=== PATIENT | male | born 1955 | race Caucasian/White ===

== ENCOUNTER 2019-04-26 08:12 | Day surgery (SDC) | payer OTHER ==
[2019-04-26 09:25] VITALS: BMI 19.5
[2019-04-26 11:39] VITALS: TEMP 97.5
--- NOTE | 2019-04-26 11:50 | OP ---
Operative Note - Note: Operative Date: 04/26/19 Pre-Operative Diagnosis: Left renal stone Operation: Left ESWL Findings: 5 mm mid pole left renal stone Post-Operative Diagnosis: Same as Pre-op Surgeon: Bobby Goff Anesthesia: Fractional Estimated Blood Loss (mls): 0 Operative Report Dictated: Yes
[2019-04-26] MEDS ORDERED: ACETAMINOPHEN 325 MG TABLET (FP) ONE (12:35)
[2019-04-26 12:51] VITALS: BP 123/86; PULSE 58
--- NOTE | 2019-04-27 08:16 | OP ---
DATE OF OPERATION: 04/26/2019 PREOPERATIVE DIAGNOSIS: Left renal stone. POSTOPERATIVE DIAGNOSIS: Left renal stone. PROCEDURE PERFORMED: Left extracorporeal shock wave lithotripsy. SURGEON: Alfredo Watson MD ANESTHESIA: Fractional. DESCRIPTION OF PROCEDURE: The patient was brought to the operating room and placed in the supine position on the operating room table. Ultrasonography and fluoroscopy were performed. A 5-mm left mid pole stone was identified. Anesthesia and preoperative antibiotics were then administered. Shock wave lithotripsy was then performed without complications. Excellent fragmentation of the stone was noted. The patient tolerated the procedure very well. DISPOSITION: The patient went to the recovery room. ALFREDO WATSON M.D. /[id number]
== END 2019-04-26 12:40 | disposition home or self-care (01) ==
LOC: JASU-SURG 08:12
PROVIDERS: ATTEND Urology
PROC: 0TF4XZZ Fragmentation in Left Kidney Pelvis, External Approach (ICD-10-PCS; principal; 2019-04-26 10:15)
DX: N20.0 Calculus of kidney (principal)

== ENCOUNTER 2022-10-07 05:31 | Day surgery (SDC) | payer OTHER ==
[2022-10-07] MEDS ORDERED: MIDAZOLAM HCL 2 MG/2 ML SINGLE DOSE VIAL ONE (10:15)
[2022-10-07] MEDS ORDERED: KETOROLAC TROMETHAMINE 30 MG/1 ML VIAL ONE (10:39)
[2022-10-07] MEDS ORDERED: ONDANSETRON 4 MG/2 ML VIAL ONE (10:39)
[2022-10-07] MEDS ORDERED: ONDANSETRON *ODT* 4 MG TABLET SL ONE (11:46)
[2022-10-07] MEDS ORDERED: ONDANSETRON *ODT* 4 MG TABLET ONE (11:48)
[2022-10-07 11:56] VITALS: RESP 20; TEMP 98.5
[2022-10-07 12:01] VITALS: BP 140/97; PULSE 85
== END 2022-10-07 13:03 | disposition home or self-care (01) ==
LOC: JASU-SURG 05:31
PROVIDERS: ATTEND Urology
PROC: 0TF4XZZ Fragmentation in Left Kidney Pelvis, External Approach (ICD-10-PCS; principal; 2022-10-07 10:00)
DX: N20.0 Calculus of kidney (principal)
CPT/HCPCS: Q0162

== ENCOUNTER 2024-09-08 09:17 | Emergency (ER) | payer OTHER ==
[2024-09-08 09:29] VITALS: BP 102/91; PULSE 85; RESP 20; TEMP 97.7; BMI 19.8
== END 2024-09-08 10:31 | disposition home or self-care (01) ==
LOC: JER 09:17
DX: K64.5 Perianal venous thrombosis (principal); K59.00 Constipation, unspecified
CPT/HCPCS: 99283-25